=== PATIENT | female | born 1945 | race Caucasian/White ===

== ENCOUNTER → 2024-01-30 12:03 | Outpatient (REF) | payer MEDICARE, OTHER, SELFPAY ==
[2024-01-30 15:50] LABS: Free T4 1.37 ng/dl (0.78-2.19)
[2024-01-30 16:04] LABS: TSH 2.47 uIU/ml (0.47-4.68)
== END ==
LOC: REG 12:03
PROVIDERS: ATTENDING PHYSICIAN Physician Assistant; FAMILY PHYSICIAN Internal Medicine
DX: E03.9 Hypothyroidism, unspecified (principal)
CPT/HCPCS: 36415; 84439; 84443

== ENCOUNTER → 2025-01-28 12:02 | Outpatient (REF) | payer MEDICARE, OTHER, SELFPAY ==
[2025-01-28 14:01] LABS: TSH 2.22 uIU/ml (0.47-4.68)
== END ==
LOC: REG 12:02
PROVIDERS: ATTENDING PHYSICIAN Physician Assistant; FAMILY PHYSICIAN Internal Medicine
DX: E03.9 Hypothyroidism, unspecified (principal)
CPT/HCPCS: 36415; 84439; 84443